=== PATIENT | female | born 1985 | race Caucasian/White ===

== ENCOUNTER 2016-08-26 16:30 | Inpatient (IN) | payer OTHER ==
[~2016-08-26] VITALS: Ht 167.6 cm; Wt 100.0 kg
[2016-08-26] VITALS (9 sets, daily range): BP systolic 109–147; BP diastolic 63–90
[~2016-08-26 16:30] MED LIST: MULTIPLE VITAM1 EAC1 PO
[2016-08-26] MEDS ORDERED: PRENATAL TABLE1 EAC3 PO (17:29)
[2016-08-26 18:09] LABS: EOSINOPHIL (%) 0.8 % (0-5); EOSINOPHIL COUNT 0.1 K/uL (0-0.3); HEMATOCRIT 31.9 % (36.0-46.0); IMMATURE GRANULOCYTE (%) 0.4 % (0.0-0.7); INSTRUMENT ABS NEUTROPHIL CT 4.8 K/uL; LYMPHOCYTE COUNT 1.8 K/uL (1.0-2.8); MCH 25.6 PG (29.0-34.0); MCHC 31.3 G/DL (30.0-36.0); MCV 81.8 FL (83-99); MEAN PLAT.VOLUME 10.6 uM^3 (9.5-12.4); MONOCYTE (%) 7.2 % (3-12); MONOCYTE COUNT 0.5 K/uL (0-0.8); NEUTROPHIL COUNT 4.8 K/uL (1.8-6.4); PLATELET COUNT 238 K/uL (156-360); RBC DIS.WIDTH-CV 15.6 % (11.8-14.6); RBC DIS.WIDTH-SD 45.5 % (39-53); WHITE BLOOD COUNT 7.2 K/uL (4.1-10.2)
[2016-08-27] VITALS (28 sets, daily range): BP systolic 108–142; BP diastolic 63–90
[2016-08-28] VITALS (23 sets, daily range): BP systolic 104–143; BP diastolic 56–101
[2016-08-28] MEDS ORDERED: IBUPROFEN800 MG PO (10:21)
[2016-08-29 16:06] VITALS: BP 105/59
[2016-08-30] VITALS: BP 114/68
[2016-08-30 08:09] VITALS: BP 121/77
== END 2016-08-30 11:30 | disposition home or self-care (01) | DRG 775 ==
LOC: LDRP-OP 16:30 → 2WEST 16:33 → LDRP-OP 10-02 15:34
PROVIDERS: Midwife
PROC: 3E0P7GC Introduction of Other Therapeutic Substance into Female Reproductive, Via Natural or Artificial Opening (ICD-10-PCS; principal; 2016-08-26)
PROC: 3E033VJ Introduction of Other Hormone into Peripheral Vein, Percutaneous Approach (ICD-10-PCS; principal; 2016-08-26)
PROC: 0HQ9XZZ Repair Perineum Skin, External Approach (ICD-10-PCS; 2016-08-28)
PROC: 00HU33Z Insertion of Infusion Device into Spinal Canal, Percutaneous Approach (ICD-10-PCS; 2016-08-28)
PROC: 10E0XZZ Delivery of Products of Conception, External Approach (ICD-10-PCS; 2016-08-28)
PROC: 10907ZC Drainage of Amniotic Fluid, Therapeutic from Products of Conception, Via Natural or Artificial Opening (ICD-10-PCS; 2016-08-28)
PROC: 3E0S3CZ (ICD-10-PCS; 2016-08-28)
DX: O70.0 First degree perineal laceration during delivery (principal); O99.824 Streptococcus B carrier state complicating childbirth; O36.8130 Decreased fetal movements, third trimester, not applicable or unspecified; O99.214 Obesity complicating childbirth; E66.9 Obesity, unspecified; Z68.36 Body mass index [BMI] 36.0-36.9, adult; Z3A.39 39 weeks gestation of pregnancy; Z37.0 Single live birth; Z87.410 Personal history of cervical dysplasia
CPT/HCPCS: 85025; C1755; G0378; J0595; J2540; J3010; J7120